=== PATIENT | male | born 1985 ===

== ENCOUNTER 2021-01-03 14:59 | Emergency (ER) | payer BC, SELFPAY ==
--- NOTE | ~2021-01-03 | US_ITS ---
US scrotum doppler DATE: 01/03/2021 15:45 INDICATION: Right scrotal pain, swelling TECHNIQUE: Real-time and color flow imaging and Doppler analysis of the scrotal contents COMPARISON: None FINDINGS: Bilateral hydroceles are demonstrated. No testicular mass lesion is evident. Testicular echotexture is symmetric and homogeneous. There is D oppler color flow signal within both testicles. The epididymis is unremarkable bilaterally. No varicocele is demonstrated. IMPRESSION: Bilateral hydroceles No testicular mass lesion or torsion is evident Reviewed, dictated and finalized at [facility]. Reviewed, dictated and finalized at [facility].
[2021-01-03 15:02] VITALS: BP 149/96; PULSE 74; RESP 18; TEMP 36.2; O2SAT 100
--- NOTE | 2021-01-03 15:27 | ED.MALEGU ---
HPI - Male Genitourinary General Chief complaint: Urogenital-Male <Kayleigh Sykes PA-C - Last Filed: 01/03/21 16:21> Stated complaint: swollen testicle <AKASH Julian Last Filed: 01/03/21 16:21> Time Seen by Provider: 01/03/21 15:11 <Kayleigh Sykes PA-C - Last Filed: 01/03/21 16:21> Source: patient <AKASH Julian Last Filed: 01/03/21 16:21> Mode of arrival: ambulatory <AKASH Julian Last Filed: 01/03/21 16:21> Limitations: no limitations <AKASH Julian Last Filed: 01/03/21 16:21> History of Present Illness HPI Narrative: This is a 35 year old male that presents to the ER for right sided testicular swelling noted yesterday. Reports some pain to the area as well. No injuries. Reports no concern for STDs. Denies fever, abdominal pain, vomiting, dysuria, hematuria, rashes or abnormal discharge. <AKASH Julian Last Filed: 01/03/21 16:21> Related Data Allergies/Adverse reactions: Allergies Allergy/AdvReac Type Severity Reaction Status Date / Time No Known Allergies Allergy Mild Verified 04/26/16 08:45 <AKASH Julian Last Filed: 01/03/21 16:21> Review of Systems Review of Systems: CONSTITUTIONAL: Denies fever GASTROINTESTINAL: Denies abdominal pain, nausea, vomiting GENITOURINARY: Denies dysuria or hematuria. SKIN: Denies rash <AKASH Julian Last Filed: 01/03/21 16:21> All systems reviewed & are unremarkable except as noted in HPI and below <AKASH Julian Last Filed: 01/03/21 16:21> PMFSH Family History Family History: Family History (Updated 06/10/17 @ 09:39 by DOCTOR UNKNOWN) Father Diabetes mellitus Family history of obesity Hypertension Mother Family history of obesity <AKASH Julian Last Filed: 01/03/21 16:21> Social History Social History: Social History Smoking status: Never smoker Alcohol intake: current <AKASH Julian Last Filed: 01/03/21 16:21> Exam Narrative: GENERAL: Well-appearing, well-nourished, and in no acute distress. HEAD: Normocephalic, atraumatic. EYES: EOMI. CHEST: Clear to auscultation. No respiratory distress. No wheezes rales or rhonchi HEART: Regular rate and rhythm. No murmur heard. Normal peripheral pulses. ABDOMEN: Soft, nontender, nondistended, normal active bowel sounds. EXTREMITIES: Normal range of motion. No edema. SKIN: Warm, dry, no rash. NEURO: No focal deficits. Alert and oriented x3. PSYCH: Normal mood and affect MALE GENITAL: Normal appearing genitals. No rashes or urethral discharge noted. No scrotal edema or erythema. Mild tenderness to palpation of the right testicle <AKASH Julian Last Filed: 01/03/21 16:21> Course Vital Signs Vital signs: Vital Signs Temperature 97.2 F L 01/03/21 15:02 Pulse Rate 74 01/03/21 15:02 Respiratory Rate 18 01/03/21 15:02 Blood Pressure 149/96 H 01/03/21 15:02 Pulse Oximetry 100 01/03/21 15:02 Temperature 97.2 F L 01/03/21 15:02 Pulse Rate 74 01/03/21 15:02 Respiratory Rate 18 01/03/21 15:02 Blood Pressure 149/96 H 01/03/21 15:02 Pulse Oximetry 100 01/03/21 15:02 <AKASH Julian Last Filed: 01/03/21 16:21> Vital Signs Temperature 97.2 F L 01/03/21 15:02 Pulse Rate 74 01/03/21 15:02 Respiratory Rate 18 01/03/21 15:02 Blood Pressure 149/96 H 01/03/21 15:02 Pulse Oximetry 100 01/03/21 15:02 Temperature 97.2 F L 01/03/21 15:02 Pulse Rate 74 01/03/21 15:02 Respiratory Rate 18 01/03/21 15:02 Blood Pressure 149/96 H 01/03/21 15:02 Pulse Oximetry 100 01/03/21 15:02 <Kamala Hatfield MD - Last Filed: 01/03/21 16:38> MDM - Male Genitourinary MDM Narrative Medical decision making narrative: Patient presents to the emergency department for testicular discomfort noted since yesterday. He is afebrile and nontoxic-appearing. Male genital exam is benign. He
[2021-01-03 16:00] LABS: Add Urine Microscopic? NO; Appearance Urine Clear (Clear); Bilirubin Urine Negative (Negative); Blood Urine Negative (Negative); Color Urine Yellow (Yellow); Glucose Urine UA Negative (Negative); Ketones Urine Negative (Negative); Leukocyte Esterase Ur Negative LEU/UL (Negative); Nitrate Urine Negative (Negative); Protein Urine Negative (Negative); Specific Grav Ur 1.024 (1.001-1.035); Urobilinogen Urine Negative mg/dL (<2.0)
== END 2021-01-03 16:39 | disposition home or self-care (01) ==
PROVIDERS: Physician Assistant; Emergency Provider General Practice; PCP Family Medicine
DX: N43.3 Hydrocele, unspecified (principal)
CPT/HCPCS: 76870; 81003; 93976; 99284